=== PATIENT | male | born 1990 | race Caucasian/White ===

== ENCOUNTER 2018-08-13 20:04 | Emergency (ER) | payer SELFPAY ==
[2018-08-13] MEDS ORDERED: KETOROLAC 30 MG/ML INJ ONE (22:16)
--- NOTE | 2018-08-13 22:43 | EDPHYS ---
Physician Documentation [facility] Name: Samir Sandoval Age: 28 yrs Sex: Male : 1990 Arrival Date: 08/13/2018 Time: 20:08 Bed 6 Private MD: ED Physician Mike Gonzalez HPI: 08/13 22:44 This 28 yrs old Male presents to ER via Ambulatory with complaints of PAIN IN tw4 HEAD. 22:44 The patient complains of pain to the forehead and left side of forehead. Onset: The tw4 symptoms/episode began/occurred today. Associated signs and symptoms: The patient has no apparent associated signs or symptoms. Severity of symptoms: At its worst the pain was moderate, in the emergency department the pain is unchanged. The symptoms are alleviated by nothing. the symptoms are aggravated by nothing. The patient has not experienced similar symptoms in the past. Historical: - Allergies: 20:24 No Known Allergies; lp1 - Home Meds: 20:24 None [Active]; lp1 - PMHx: 20:24 None; lp1 - PSHx: 20:24 None; lp1 - Immunization history:: Adult Immunizations up to date. - Social history:: Smoking status: Patient uses tobacco products, denies chronic smoking, but will smoke occasionally. - Ebola Screening: : No symptoms or risks identified at this time. ROS: 22:44 Constitutional: Negative for fever, chills, and weight loss, Eyes: Negative for injury, tw4 pain, redness, and discharge, Cardiovascular: Negative for chest pain, palpitations, and edema, Respiratory: Negative for shortness of breath, cough, wheezing, and pleuritic chest pain, Abdomen/GI: Negative for abdominal pain, nausea, vomiting, diarrhea, and constipation, Back: Negative for injury and pain, Skin: Negative for injury, rash, and discoloration. 22:44 Neuro: Positive for headache, Negative for altered mental status, dizziness, gait disturbance, numbness, seizure activity, speech changes, tinnitus. Exam: 22:44 Constitutional: This is a well developed, well nourished patient who is awake, alert, tw4 and in no acute distress. Head/Face: Normocephalic, atraumatic. Chest/axilla: Normal chest wall appearance and motion. Nontender with no deformity. No lesions are appreciated. Cardiovascular: Regular rate and rhythm with a normal S1 and S2. No gallops, murmurs, or rubs. Normal PMI, no JVD. No pulse deficits. Respiratory: Lungs have equal breath sounds bilaterally, clear to auscultation and percussion. No rales, rhonchi or wheezes noted. No increased work of breathing, no retractions or nasal flaring. Abdomen/GI: Soft, non-tender, with normal bowel sounds. No distension or tympany. No guarding or rebound. No evidence of tenderness throughout. Back: No spinal tenderness. No costovertebral tenderness. Full range of motion. MS/ Extremity: Pulses equal, no cyanosis. Neurovascular intact. Full, normal range of motion. Neuro: Awake and alert, GCS 15, oriented to person, place, time, and situation. Cranial nerves II-XII grossly intact. Motor strength 5/5 in all extremities. Sensory grossly intact. Cerebellar exam normal. Normal gait. Vital Signs: 20:25 BP 135 / 85; Pulse 97; Resp 18; Temp 99.4(O); Pulse Ox 97% on R/A; Weight 117.93 kg lp1 (R); Height 5 ft. 11 in. (180.34 cm); Pain 9/10; 21:23 BP 109 / 79; Pulse 86; Resp 16; Pulse Ox 97% on R/A; ak1 22:32 BP 128 / 87; Pulse 76; Resp 16; Pulse Ox 97% on R/A; ak1 20:25 Body Mass Index 36.26 (117.93 kg, 180.34 cm) lp1 MDM: 20:47 Patient medically screened. tw4 22:44 Differential diagnosis: cluster headache, hypertensive headache, migraine, temporal tw4 arteritis, tension headache, uremia. Data reviewed: vital signs, EMS record. Counseling: I had a detailed discussion with the patient and/or guardian regarding: the historical points, exam findings, and any diagnostic results supporting the discharge/admit diagnosis, radiology results. Medication response: Response to treatment: the patient's symptoms have markedly improved after treatment, and as a result, I will discharge patient. Special discussion: I discussed with the patient/guardian in detail that at this point there is no indication for admission to the hospital. It is understood, however, that if the symptoms persist or worsen the patient needs to return immediately for re-evaluation. 08/13 21:16 Order name: Head Brain Wo Cont EDMS Administered Medications: 22:10 Drug: TORadol 60 mg Route: IM; Site: right gluteus; rr5 22:51 Follow up: Response: No adverse reaction; Pain is decreased ak1 Disposition: 08/13/18 22:42 Discharged to Home. Impression: Headache. - Condition is Stable. - Discharge Instructions: General Headache Without Cause, Migraine Headache. - Prescriptions for Fiorinal 50- 325-40 mg Oral Capsule - take 1 capsule by ORAL route every 4 hours As needed - not to exceed 6 capsules per day; 20 capsule. Ibuprofen 800 mg Oral Tablet - take 1 tablet by ORAL route every 8 hours As needed take with food; 30 tablet. - Medication Reconciliation Form, Thank You Letter, Antibiotic Education, Prescription Opioid Use, Work release form form. - Follow up: Private Physician; When: Upon discharge from the Emergency Department; Reason: If symptoms return, Recheck today's complaints, Continuance of care. - Problem is new. - Symptoms have improved. Signatures: Dispatcher [employer] EDRI Meg Fields RN RN lp1 Tara Holder RN RN ak1 Mike Gonzalez MD MD tw4 Geovanny Brandt RN RN rr5 Corrections: (The following items were deleted from the chart) 20:25 20:24 Social history: Smoking status: lp1 lp1 21:16 21:09 Head Brain W/ Wo Con+CT.RAD.BRZ ordered. [facility] EDRI 22:50 22:42 08/13/2018 22:42 Discharged to Home. Impression: Headache. Condition is Stable. ak1 Forms are Medication Reconciliation Form, Thank You Letter, Antibiotic Education, Prescription Opioid Use. Follow up: Private Physician; When: Upon discharge from the Emergency Department; Reason: If symptoms return, Recheck today's complaints, Continuance of care. Problem is new. Symptoms have improved. tw4
--- NOTE | 2018-08-13 22:43 | ER ---
Nurse's Notes [facility] Name: Samir Sandoval Age: 28 yrs Sex: Male : 1990 Arrival Date: 08/13/2018 Time: 20:08 Bed 6 Private MD: Diagnosis: Headache Presentation: 08/13 20:21 Presenting complaint: Patient states: "I'm having a pain in my left frontal cortex area lp1 and in the back of my head where that artery is"; Patient states he's had headaches before but this is different; pain x 2 weeks with no relief. Transition of care: patient was not received from another setting of care. Onset of symptoms was August 13, 2018. Risk Assessment: Do you want to hurt yourself or someone else? Patient reports no desire to harm self or others. Initial Sepsis Screen: Does the patient meet any 2 criteria? No. Patient's initial sepsis screen is negative. Does the patient have a suspected source of infection? No. Patient's initial sepsis screen is negative. Care prior to arrival: None. 20:21 Method Of Arrival: Ambulatory lp1 20:21 Acuity: JAMES 3 lp1 Historical: - Allergies: 20:24 No Known Allergies; lp1 - Home Meds: 20:24 None [Active]; lp1 - PMHx: 20:24 None; lp1 - PSHx: 20:24 None; lp1 - Immunization history:: Adult Immunizations up to date. - Social history:: Smoking status: Patient uses tobacco products, denies chronic smoking, but will smoke occasionally. - Ebola Screening: : No symptoms or risks identified at this time. Screenin:15 Abuse screen: Denies threats or abuse. Denies injuries from another. Nutritional ak1 screening: No deficits noted. Tuberculosis screening: No symptoms or risk factors identified. Fall Risk None identified. Assessment: 21:13 General: Appears in no apparent distress. Behavior is calm, cooperative. Pain: ak1 Complains of pain in forehead Pain began 2 week LANG INTERPRETER. Neuro: Level of Consciousness is awake, alert, obeys commands, Oriented to person, place, time, Cashier Supervisor are equal bilaterally Moves all extremities. Gait is steady, Speech is normal, Facial symmetry appears normal, Pupils are PERRLA, Reports pain above left eye for 2 weeks LANG INTERPRETER. pt denies N/V, denies any vision changes. . Cardiovascular: No deficits noted. Respiratory: No deficits noted. GI: No signs and/or symptoms were reported involving the gastrointestinal system. : No signs and/or symptoms were reported regarding the genitourinary system. EENT: No signs and/or symptoms were reported regarding the EENT system. Derm: No signs and/or symptoms reported regarding the dermatologic system. Musculoskeletal: No signs and/or symptoms reported regarding the musculoskeletal system. 22:51 Reassessment: Patient appears in no apparent distress at this time. Patient and/or ak1 family updated on plan of care and expected duration. Pain level reassessed. Patient states feeling better. Patient states symptoms have improved. Vital Signs: 20:25 BP 135 / 85; Pulse 97; Resp 18; Temp 99.4(O); Pulse Ox 97% on R/A; Weight 117.93 kg lp1 (R); Height 5 ft. 11 in. (180.34 cm); Pain 9/10; 21:23 BP 109 / 79; Pulse 86; Resp 16; Pulse Ox 97% on R/A; ak1 22:32 BP 128 / 87; Pulse 76; Resp 16; Pulse Ox 97% on R/A; ak1 20:25 Body Mass Index 36.26 (117.93 kg, 180.34 cm) lp1 ED Course: 20:08 Patient arrived in ED. es 20:24 Triage completed. lp1 20:24 Arm band placed on right wrist. lp1 20:47 Mike Gonzalez MD is Attending Physician. tw4 21:08 Tara Holder, RN is Primary Nurse. ak1 21:[address] via wheelchair. sj 21:15 Patient has correct armband on for positive identification. Bed in low position. Call ak1 light in reach. Side rails up X 1. Adult w/ patient. Pulse ox on. NIBP on. 21:18 CT completed. Patient tolerated procedure well. Patient moved back from CT. vm2 21:23 Head Brain Wo Cont In Process Unspecified. EDMS 22:49 No provider procedures requiring assistance completed. Patient did not have IV access ak1 during this emergency room visit. Administered Medications: 22:10 Drug: TORadol 60 mg Route: IM; Site: right gluteus; rr5 22:51 Follow up: Response: No adverse reaction; Pain is decreased ak1 Outcome: 22:42 Discharge ordered by . tw4 22:49 Discharged to home ambulatory, with family. ak1 22:49 Condition: improved 22:49 Discharge instructions given to patient, family, Instructed on discharge instructions, follow up and referral plans. no drinking with medication, no driving heavy equipment, medication usage, Demonstrated understanding of instructions, follow-up care, medications, Prescriptions given X 2. 22:50 Patient left the ED. ak1 Signatures: Dispatcher [employer] EDSafia Krueger Susan sj Pena, Laura, RN RN lp1 Tara Holder RN RN ak1 Alia Bennett 2 Mike Gonzalez MD MD tw4 Geovanny Brandt, RN RN rr5 Corrections: (The following items were deleted from the chart) 20:25 20:24 Social history: Smoking status: lp1 lp1
--- NOTE | 2018-08-14 10:46 | RAD REPORT ---
EXAM DESCRIPTION: CT - Head Brain Wo Cont - 08/13/2018 9:51 pm CLINICAL HISTORY: 28 years old and is Male; HEADACHE TECHNIQUE: Axial computed tomography images of the head/brain without intravenous contrast. Sagitt al and coronal reformatted images were created and reviewed. EXAM COMPLETED DATE AND APPROX. TIME: 08/13/2018 9:[address] exam was performed using one or more of the following dose reduction t echniques: automated exposure control, adjustment of the mA and/or kV according to patient size, an d/or use of iterative reconstruction technique. COMPARISON: No relevant prior studies available. FINDINGS: Limitations: None. Brain: Unremarkable. No hemorrhage. No significant white matter disease. No edema. Ventricles: Unremarkable. No ventriculomegaly. Bones/joints: Unremarkable. No acute fracture. Soft tissues: Unremarkable. Sinuses: Unremarkable as visualized. No acute sinusitis. Mastoid air cells: Unremarkable as visualized. No mastoid effusion. IMPRESSION: No acute findings. Electronically signed by: Erna Blanton MD 08/13/2018 9:32 PM CDT Due to temporary technical issues with the PACS/Fluency reporting system, reports are being signed by the in house radiologist as a courtesy to ensure prompt reporting. The interpreting radiologist is f ully responsible for the content of the report.
== END 2018-08-13 22:50 | disposition home or self-care (01) ==
LOC: ER 20:04
DX: R51 Headache (principal); Z72.0 Tobacco use
CPT/HCPCS: 70450; 96372; 99284

== ENCOUNTER 2021-08-21 14:22 | Emergency (ER) | payer SELFPAY ==
--- NOTE | 2021-08-21 15:33 | ER ---
Nurse's Notes [facility] Name: Samir Sandoval Age: 31 yrs Sex: Male : 1990 Arrival Date: 08/21/2021 Time: 14:25 Bed 24 Private MD: Diagnosis: Hematuria, unspecified;Hematospermia Presentation: 08/21 14:36 Chief complaint: Patient states: "Last night I was having intercourse with my ab2 girlfriend and there was blood on my penis so we thought she just started her period but this morning after I urinated, I had a bloody discharge." Pt denies any pain. Coronavirus screen: Vaccine status: Patient reports being unvaccinated. Client denies travel out of the [place] in the last 14 days. At this time, the client does not indicate any symptoms associated with coronavirus-19. Ebola Screen: Patient negative for fever greater than or equal to 101.5 degrees Fahrenheit, and additional compatible Ebola Virus Disease symptoms Patient denies exposure to infectious person. Patient denies travel to an Ebola-affected area in the 21 days before illness onset. No symptoms or risks identified at this time. Initial Sepsis Screen: Does the patient meet any 2 criteria? No. Patient's initial sepsis screen is negative. Does the patient have a suspected source of infection? No. Patient's initial sepsis screen is negative. Risk Assessment: Do you want to hurt yourself or someone else? Patient reports no desire to harm self or others. Onset of symptoms is unknown. 14:36 Method Of Arrival: Ambulatory ab2 14:36 Acuity: JAMES 4 ab2 Triage Assessment: 14:39 General: Appears in no apparent distress. comfortable, Behavior is calm, cooperative, ab2 appropriate for age. Pain: Denies pain. : Reports discharge, from penis that is bloody. Historical: - Allergies: 14:39 No Known Allergies; ab2 - PMHx: 14:39 None; ab2 - PSHx: 14:39 None; ab2 - Immunization history:: Adult Immunizations up to date. - Social history:: Smoking status: Patient denies any tobacco usage or history of. - Family history:: not pertinent. Vital Signs: 14:36 BP 129 / 82; Pulse 80; Resp 16; Temp 98.5(TE); Pulse Ox 100% ; Weight 90.72 kg; Height ab2 5 ft. 11 in. (180.34 cm); Pain 0/10; 14:36 Body Mass Index 27.89 (90.72 kg, 180.34 cm) ab2 ED Course: 14:25 Patient arrived in ED. ds1 14:38 Triage completed. ab2 14:39 Arm band placed on right wrist. ab2 14:45 Kassi Torres, VIDYA is Primary Nurse. iw 14:47 Ra Barrera MD is Attending Physician. kevin 15:33 Domo Gray MD is Referral Physician. kevin Administered Medications: No medications were administered Outcome: 15:33 Discharge ordered by . kevin 16:08 Patient left the ED. iw Signatures: Ra Barrera MD MD cha Sanford, Demi ds1 Kassi Torres RN RN Keith Garcia ab2
--- NOTE | 2021-08-21 15:33 | EDPHYS ---
Physician Documentation [facility] Name: Samir Sandoval Age: 31 yrs Sex: Male : 1990 Arrival Date: 08/21/2021 Time: 14:25 Bed 24 Private MD: Ra Guerrero HPI: 08/21 15:26 This 31 yrs old Male presents to ER via Ambulatory with complaints of Penile kevin Bleeding. 15:26 The patient presents with hematuria after sex. Onset: The symptoms/episode kevin began/occurred 1 day(s) ago. Modifying factors: The symptoms are alleviated by nothing, the symptoms are aggravated by nothing. Associated signs and symptoms: The patient has no apparent associated signs or symptoms. Severity of symptoms: At their worst the symptoms were mild, in the emergency department the symptoms have improved, moderately. The patient has not experienced similar symptoms in the past. Historical: - Allergies: 14:39 No Known Allergies; ab2 - PMHx: 14:39 None; ab2 - PSHx: 14:39 None; ab2 - Immunization history:: Adult Immunizations up to date. - Social history:: Smoking status: Patient denies any tobacco usage or history of. - Family history:: not pertinent. ROS: 15:26 Constitutional: Negative for fever, chills, and weight loss, Eyes: Negative for injury, kevin pain, redness, and discharge, ENT: Negative for injury, pain, and discharge, Neck: Negative for injury, pain, and swelling, Cardiovascular: Negative for chest pain, palpitations, and edema, Respiratory: Negative for shortness of breath, cough, wheezing, and pleuritic chest pain, Abdomen/GI: Negative for abdominal pain, nausea, vomiting, diarrhea, and constipation, Back: Negative for injury and pain, MS/Extremity: Negative for injury and deformity, Skin: Negative for injury, rash, and discoloration, Neuro: Negative for headache, weakness, numbness, tingling, and seizure, Psych: Negative for depression, anxiety, suicide ideation, homicidal ideation, and hallucinations, Allergy/Immunology: Negative for hives, rash, and allergies, Endocrine: Negative for neck swelling, polydipsia, polyuria, polyphagia, and marked weight changes, Hematologic/Lymphatic: Negative for swollen nodes, abnormal bleeding, and unusual bruising. 15:26 : Positive for hematuria. Exam: 15:26 Constitutional: This is a well developed, well nourished patient who is awake, alert, kevin and in no acute distress. Head/Face: Normocephalic, atraumatic. Eyes: Pupils equal round and reactive to light, extra-ocular motions intact. Lids and lashes normal. Conjunctiva and sclera are non-icteric and not injected. Cornea within normal limits. Periorbital areas with no swelling, redness, or edema. ENT: Nares patent. No nasal discharge, no septal abnormalities noted. Tympanic membranes are normal and external auditory canals are clear. Oropharynx with no redness, swelling, or masses, exudates, or evidence of obstruction, uvula midline. Mucous membranes moist. Neck: Trachea midline, no thyromegaly or masses palpated, and no cervical lymphadenopathy. Supple, full range of motion without nuchal rigidity, or vertebral point tenderness. No Meningismus. Chest/axilla: Normal chest wall appearance and motion. Nontender with no deformity. No lesions are appreciated. Cardiovascular: Regular rate and rhythm with a normal S1 and S2. No gallops, murmurs, or rubs. Normal PMI, no JVD. No pulse deficits. Respiratory: Lungs have equal breath sounds bilaterally, clear to auscultation and percussion. No rales, rhonchi or wheezes noted. No increased work of breathing, no retractions or nasal flaring. Abdomen/GI: Soft, non-tender, with normal bowel sounds. No distension or tympany. No guarding or rebound. No evidence of tenderness throughout. Back: No spinal tenderness. No costovertebral tenderness. Full range of motion. Male : Normal genitalia with no discharge or lesions. Skin: Warm, dry with normal turgor. Normal color with no rashes, no lesions, and no evidence of cellulitis. MS/ Extremity: Pulses equal, no cyanosis. Neurovascular intact. Full, normal range of motion. Neuro: Awake and alert, GCS 15, oriented to person, place, time, and situation. Cranial nerves II-XII grossly intact. Motor strength 5/5 in all extremities. Sensory grossly intact. Cerebellar exam normal. Normal gait. Psych: Awake, alert, with orientation to person, place and time. Behavior, mood, and affect are within normal limits. Vital Signs: 14:36 BP 129 / 82; Pulse 80; Resp 16; Temp 98.5(TE); Pulse Ox 100% ; Weight 90.72 kg; Height ab2 5 ft. 11 in. (180.34 cm); Pain 0/10; 14:36 Body Mass Index 27.89 (90.72 kg, 180.34 cm) ab2 MDM: 14:47 Patient medically screened. [facility] 15:31 Differential diagnosis: UTI, prostatitis, urethritis. Data reviewed: vital signs, [facility] nurses notes, lab test result(s), urinalysis. Data interpreted: press hand: not applicable for this patient encounter. rate is 80 beats/min, Pulse oximetry: on room air is 100 %. Test interpretation: by ED physician or midlevel provider:. Counseling: I had a detailed discussion with the patient and/or guardian regarding: the historical points, exam findings, and any diagnostic results supporting the discharge/admit diagnosis, lab results, the need for outpatient follow up, for definitive care, a family practitioner, a urologist. 08/21 15:36 Order name: Urine Dipstick-Ancillary [facility] 08/21 14:48 Order name: Urine Dipstick-Ancillary (obtain specimen); Complete Time: 15:34 kevin Administered Medications: No medications were administered Disposition Summary: 08/21/21 15:33 Discharge Ordered Location: Home [facility] Problem: new [facility] Symptoms: have improved kevin Condition: Stable [facility] Diagnosis - Hematuria, unspecified kevin - Hematospermia kevin Followup: kevin - With: Private Physician - When: 2 - 3 days - Reason: Recheck today's complaints, Continuance of care, Re-evaluation by your physician Followup: kevin - With: Domo Gray MD - When: 2 - 3 days - Reason: Recheck today's complaints, Re-evaluation by your physician Discharge Instructions: - Discharge Summary Sheet kevin - Hematuria, Adult [facility] Forms: - Medication Reconciliation Form [facility] - Thank You Letter kevin - Antibiotic Education [facility] - Prescription Opioid Use [facility] Prescriptions: - Bactrim DS 800-160 mg Oral Tablet - take 1 tablet by ORAL route every 12 hours for 7 days; 14 tablet; Refills: 0, kevin Product Selection Permitted Signatures: Dispatcher [employer] [facility] Ra Barrera MD MD cha Bleininger, Alexis ab2
[2021-08-21 15:36] LABS: Urine Blood 3+ (Negative); Urine Glucose Negative (Negative); Urine Protein Negative (Negative)
[2021-08-21 16:18] VITALS: BP 129/82; TEMP 98.5; O2SAT 100
== END 2021-08-21 16:08 | disposition home or self-care (01) ==
LOC: ER 14:22
DX: R31.9 Hematuria, unspecified (principal); R36.1 Hematospermia
CPT/HCPCS: 81003; 99281

== ENCOUNTER 2022-11-09 17:44 | Emergency (ER) | payer SELFPAY ==
--- NOTE | 2022-11-09 18:41 | EDPHYS ---
Physician Documentation [facility] Name: Samir Sandoval Age: 32 yrs Sex: Male : 1990 Arrival Date: 11/09/2022 Time: 17:44 Bed 10 Private MD: ED Physician Bryan Pollock HPI: 11/09 18:09 This 32 yrs old Male presents to ER via Ambulatory with complaints of Sore Throat. cp 18:09 The patient presents with sore throat. The patient describes throat pain as constant. cp Onset: The symptoms/episode began/occurred 2 day(s) ago. Associated signs and symptoms: Pertinent positives: fever, Pertinent negatives cough, dysphagia, headache. Historical: - Allergies: 18:03 No Known Allergies; cm10 - Home Meds: 18:03 None [Active]; cm10 - PMHx: 18:03 None; cm10 - PSHx: 18:03 None; cm10 - Immunization history:: Adult Immunizations unknown. - Social history:: Smoking status: Patient reports use of chewing tobacco. ROS: 18:15 Constitutional: Positive for fever, Negative for body aches, poor PO intake. cp 18:15 Eyes: Negative for injury, pain, redness, and discharge. cp 18:15 ENT: Positive for sore throat, Negative for drainage from ear(s), ear pain, rhinorrhea, difficulty swallowing, difficulty handling secretions. 18:15 Respiratory: Negative for cough, shortness of breath, wheezing. 18:15 Abdomen/GI: Negative for abdominal pain, vomiting, diarrhea, constipation. 18:15 Skin: Negative for rash. 18:15 Neuro: Negative for altered mental status, dizziness, headache. 18:15 All other systems are negative. Exam: 18:20 Constitutional: The patient appears in no acute distress, alert, awake, non-toxic, well cp developed, well nourished. 18:20 Head/Face: Normocephalic, atraumatic. cp 18:20 Eyes: Periorbital structures: appear normal, Conjunctiva: normal, no exudate, no injection, Sclera: no appreciated abnormality, Lids and lashes: appear normal, bilaterally. 18:20 ENT: External ear(s): are unremarkable, Ear canal(s): are normal, clear, TM's: bulging, is not appreciated, bilaterally, erythema, that is mild, bilaterally, Nose: is normal, Mouth: Lips: moist, Oral mucosa: moist, Posterior pharynx: Airway: no evidence of obstruction, patent, Tonsils: bilaterally enlarged, with erythema, no exudate, Uvula: midline, erythema, that is moderate. 18:20 Neck: ROM/movement: is normal, is supple, no meningismus, no nuchal rigidity. 18:20 Chest/axilla: Inspection: normal. 18:20 Cardiovascular: Rate: normal. 18:20 Respiratory: the patient does not display signs of respiratory distress, Respirations: normal, no use of accessory muscles, no retractions, labored breathing, is not present, Breath sounds: are clear throughout, no decreased breath sounds, no stridor, no wheezing. 18:20 Abdomen/GI: Inspection: abdomen appears normal. 18:20 Skin: no rash present. Vital Signs: 18:01 BP 146 / 91; Pulse 91; Resp 22; Temp 100.1(O); Pulse Ox 100% on R/A; Weight 83.91 kg; cm10 Height 5 ft. 11 in. ; Pain 4/10; 19:16 BP 136 / 85; Pulse 98; Resp 17; Temp 99.6; Pulse Ox 100% on R/A; os 18:01 Body Mass Index 25.80 (83.91 kg, 180.34 cm) cm10 18:01 Pain Scale: Adult cm10 MDM: 18:09 Patient medically screened. cp 18:15 Differential diagnosis: epiglottitis, troy-jack virus, group A strep tonsillitis, cp influenza, mononucleosis, peritonsillar abscess pharyngitis, retropharyngeal abcess. 18:40 Data reviewed: vital signs, nurses notes, lab test result(s). cp 18:40 Counseling: I had a detailed discussion with the patient and/or guardian regarding: the cp historical points, exam findings, and any diagnostic results supporting the discharge/admit diagnosis, lab results, to return to the emergency department if symptoms worsen or persist or if there are any questions or concerns that arise at home. 11/09 18:06 Order name: Strep ll1 11/09 18:36 Order name: Throat Culture EDMS Administered Medications: No medications were administered Disposition Summary: 11/09/22 18:41 Discharge Ordered Location: Home cp Problem: new cp Symptoms: are unchanged cp Condition: Stable cp Diagnosis - Acute pharyngitis, unspecified cp Followup: cp - With: Private Physician - When: 2 - 3 days - Reason: Worsening of condition Discharge Instructions: - Discharge Summary Sheet cp - Pharyngitis cp - Sore Throat cp Forms: - Work release form snw - Medication Reconciliation Form cp - Thank You Letter cp - Antibiotic Education cp - Prescription Opioid Use cp Prescriptions: - Amoxicillin 875 mg Oral Tablet - take 1 tablet by ORAL route every 12 hours for 10 days; 20 tablet; Refills: 0, cp Product Selection Permitted - Ibuprofen 800 mg Oral Tablet - take 1 tablet by ORAL route every 8 hours As needed take with food; 30 tablet; cp Refills: 0, Product Selection Permitted Signatures: Dispatcher [employer] EDMS Ra Waters PA PA cp Martinez, Clarissa, RN RN cm10
--- NOTE | 2022-11-09 18:41 | ER ---
Nurse's Notes [facility] Name: Samir Sandoval Age: 32 yrs Sex: Male : 1990 Arrival Date: 11/09/2022 Time: 17:44 Bed 10 Private MD: Diagnosis: Acute pharyngitis, unspecified Presentation: 11/09 18:01 Chief complaint: Patient states: pt reports sore throat. Pt states that he feels like cm10 he has a knot on the left side. Pt reports difficulty swallowing and fevers at home. Patient in NAD, respirations even and unlabored. Patient able to speak in complete sentences. Coronavirus screen: Vaccine status: Patient reports being unvaccinated. Client denies travel out of the [place] in the last 14 days. At this time, the client does not indicate any symptoms associated with coronavirus-19. Ebola Screen: No symptoms or risks identified at this time. Initial Sepsis Screen: Does the patient meet any 2 criteria? No. Patient's initial sepsis screen is negative. Does the patient have a suspected source of infection? No. Patient's initial sepsis screen is negative. Risk Assessment: Do you want to hurt yourself or someone else? Patient reports no desire to harm self or others. Onset of symptoms was November 06, 2022. 18:01 Method Of Arrival: Ambulatory cm10 18:01 Acuity: JAMES 4 cm10 Triage Assessment: 18:04 General: Appears in no apparent distress. comfortable, Behavior is calm, cooperative. cm10 Pain: Complains of pain in Throat Pain currently is 4 out of 10 on a pain scale. EENT: Reports difficulty swallowing pain in Throat. Historical: - Allergies: 18:03 No Known Allergies; cm10 - Home Meds: 18:03 None [Active]; cm10 - PMHx: 18:03 None; cm10 - PSHx: 18:03 None; cm10 - Immunization history:: Adult Immunizations unknown. - Social history:: Smoking status: Patient reports use of chewing tobacco. Screenin:05 [facility] ED Fall Risk Assessment (Adult) History of falling in the last 3 months, cm10 including since admission No falls in past 3 months (0 pts) Confusion or Disorientation No (0 pts) Intoxicated or Sedated No (0 pts) Impaired Gait No (0 pts) Mobility Assist Device Used No (0 pt) Altered Elimination No (0 pt) Score/Fall Risk Level 0 - 2 = Low Risk. Abuse screen: Denies threats or abuse. Denies injuries from another. Nutritional screening: No deficits noted. Tuberculosis screening: No symptoms or risk factors identified. Assessment: 18:05 Respiratory: Airway is patent Trachea midline Respiratory effort is even, unlabored. cm10 18:06 Respiratory: cm10 Vital Signs: 18:01 BP 146 / 91; Pulse 91; Resp 22; Temp 100.1(O); Pulse Ox 100% on R/A; Weight 83.91 kg; cm10 Height 5 ft. 11 in. ; Pain 4/10; 19:16 BP 136 / 85; Pulse 98; Resp 17; Temp 99.6; Pulse Ox 100% on R/A; os 18:01 Body Mass Index 25.80 (83.91 kg, 180.34 cm) cm10 18:01 Pain Scale: Adult cm10 ED Course: 17:47 Patient arrived in ED. mr 17:48 Ra Waters PA is PHCP. cp 17:48 Bryan Pollock MD is Attending Physician. cp 18:03 Triage completed. cm10 18:04 Arm band placed on Patient placed in waiting room. cm10 18:07 Strep Sent. ll1 18:11 Strep Sent. ll1 18:35 Patient placed in an exam room, on a stretcher. aa5 19:15 Dorothy Burciaga, VIDYA is Primary Nurse. os 19:16 Throat Culture Sent. os 19:17 No provider procedures requiring assistance completed. os 19:18 Patient has correct armband on for positive identification. Bed in low position. Call os light in reach. Side rails up X 1. Side rails up X2. Adult w/ patient. 19:18 Patient did not have IV access during this emergency room visit. os Administered Medications: No medications were administered Medication: 19:18 VIS not applicable for this client. os Outcome: 18:41 Discharge ordered by MD. cp 19:18 Discharged to home ambulatory. os 19:18 Condition: stable 19:18 Discharge instructions given to patient, family. 19:19 Patient left the ED. os Signatures: Patricia Rucker mr EdwardsRena RN RN aa5 Ra Waters PA PA Arnaldo Reddy RN RN ll1 Dorothy Burciaga RN RN os Jolynn Slater, RN RN cm10
[2022-11-09 19:32] VITALS: O2SAT 100
[2022-11-09 19:33] VITALS: BP 136/85; TEMP 99.6
== END 2022-11-09 19:19 | disposition home or self-care (01) ==
LOC: ER 17:44
DX: J02.9 Acute pharyngitis, unspecified (principal)
CPT/HCPCS: 87070; 87081; 99283